=== PATIENT | female | born 1985 | race Two or more races ===

== ENCOUNTER 2021-09-03 22:25 | Emergency (ER) | payer MEDICAID ==
[~2021-09-03] VITALS: Ht 162.6 cm; Wt 61.8 kg
[2021-09-03 22:28] VITALS: BP 132/84
== END 2021-09-04 00:18 | disposition left against medical advice (07) ==
LOC: EMS 22:26
DX: M25.511 Pain in right shoulder (principal); Z53.21 Procedure and treatment not carried out due to patient leaving prior to being seen by health care provider